=== PATIENT | male | born 1995 | race Caucasian/White ===

== ENCOUNTER 2024-01-22 02:36 | Emergency (ER) | payer SELFPAY ==
[2024-01-22 02:39] VITALS: BP 150/106
--- NOTE | 2024-01-22 03:40 | ED.GENMED ---
History of Present Illness
<Gen Coleman MD, Resident - Last Filed: 01/22/24 05:39>
General
Chief Complaint: Flank Pain
Source: patient
Time Seen by Provider: 01/22/24 03:30
Travel History
Have you traveled to any high risk areas for coronavirus over the past 14 days?: No
Have you had any contact with someone who has COVID-19?: No
Do you have any symptoms of coronavirus? Fever > 100 degrees, chills, cough, shortness of breath, sore throat, loss of taste or smell, muscle aches, or headache?: No
History of Present Illness
History of Present Illness:
Efe Neff, age 28 with a history of nephrolithiasis, developed acute left-sided flank pain a few hours ago. He has experienced similar episodes 3-4x in the past due to nephrolithiasis. He has been evaluated by urology in the past but has not
undergone any procedures so far due to the size of his stones. Denies fever, chills, night sweats or blood in urine.
Past History
<Gen Coleman MD, Resident - Last Filed: 01/22/24 05:39>
Past History
ED Past Medical History: Other (kidney stones)
ED Past Surgical History: None
Social History
Tobacco: Non-smoker
Personal: Single
Employment: Student
Phy Exam
<Gen Coleman MD, Resident - Last Filed: 01/22/24 05:39>
General Physical Exam
General Presentation: well appearing and no apparent distress
General Skin: warm and dry
General Habitus: normal
General Mental: alert
General Hydration: appears well hydrated
ENT Exam
ENT Exam: EOMI, pharynx normal, neck supple and normocephalic
Eye Exam
Eye Exam: PERRL, cornea clear and conjunctiva normal
Cardiovascular Exam
Cardiovascular Exam: regular rate/rhythm, no edema, no murmur and normal peripheral pulses
Pulmonary Exam
Pulmonary Exam: lungs clear, no respiratory distress, no rales, no crackles, no rhonchi, no stridor, no wheezing and no cough
Gastrointestinal Exam
Gastrointestinal Exam: normal bowel sounds, non tender, soft, no organomegaly, no pulsatile mass and non distended
Neurological Exam
Neurological Exam: alert, oriented x3, no motor deficits and speech normal
Musculoskeletal Exam
Musculoskeletal Exam: full ROM and no edema
Skin Exam
Skin Exam: normal color, warm/dry, no rash and no petechia
Psychiatric Exam
Psychiatric Exam: normal mood/affect
Course
<Gen Coleman MD, Resident - Last Filed: 01/22/24 05:39>
Orders/Labs/Results
Orders:
Orders
01/22/24 03:08
UA [Urinalysis] Urgent
Date Specimen was Collected: 01/22/24
Time Specimen was Collected: 03:08
01/22/24 03:44
Ketorolac [Toradol] 30 mg IV NOW STA
Tamsulosin [Flomax] 0.4 mg PO NOW STA
01/22/24 03:47
CT Abd/pel Without Iv Or Oral Urgent
Comment:
Reason For Exam: flank pain
01/22/24 03:48
0.9% Sodium Chloride 500 ml [Nss] 500 ml IV BOLUS
01/22/24 03:49
Ondansetron Injectable [Zofran] 4 mg .ROUTE .[facility]
01/22/24 03:54
Complete Blood Count/With Diff Urgent
Comprehensive Metabolic Panel Urgent
01/22/24 03:57
Ondansetron Injectable [Zofran] 4 mg IV NOW STA
01/22/24 03:58
HYDROmorphone [Dilaudid] 0.5 mg .ROUTE .[facility]
HYDROmorphone [Dilaudid] 0.5 mg IV NOW STA
Abnormal Lab Results
01/22/24
03:54
MPV 10.6 H fL
(7.4-10.4)
Glucose 108 H mg/dl
(70-99)
01/22/24 03:54
01/22/24 03:54
Vital Signs
Initial and Last Documented VS:
Initial Vital Signs
Temp Pulse Resp BP Pulse Ox
97.5 F 87 18 150/106 97
01/22/24 02:39 01/22/24 02:39 01/22/24 02:39 01/22/24 02:39 01/22/24 02:39
Last Documented Vital Signs
Temp Pulse Resp BP Pulse Ox
97.5 F 94 18 131/80 99
01/22/24 02:39 01/22/24 04:35 01/22/24 04:35 01/22/24 04:35 01/22/24 04:35
<Last Myers, - Last Filed: 01/22/24 05:07>
Orders/Labs/Results
Orders:
Orders
01/22/24 03:08
UA [Urinalysis] Urgent
Date Specimen was Collected: 01/22/24
Time Specimen was Collected: 03:08
01/22/24 03:44
Ketorolac [Toradol] 30 mg IV NOW STA
Tamsulosin [Flomax] 0.4 mg PO NOW STA
01/22/24 03:47
CT Abd/pel Without Iv Or Oral Urgent
Comment:
Reason For Exam: flank pain
01/22/24 03:48
0.9% Sodium Chloride 500 ml [Nss] 500 ml IV BOLUS
01/22/24 03:49
Ondansetron Injectable [Zofran] 4 mg .ROUTE .[facility]
01/22/24 03:54
Complete Blood Count/With Diff Urgent
Comprehensive Metabolic Panel Urgent
01/22/24 03:57
Ondansetron Injectable [Zofran] 4 mg IV NOW STA
01/22/24 03:58
HYDROmorphone [Dilaudid] 0.5 mg .ROUTE .[facility]
HYDROmorphone [Dilaudid] 0.5 mg IV NOW STA
Abnormal Lab Results
01/22/24
03:54
MPV 10.6 H fL
(7.4-10.4)
Glucose 108 H mg/dl
(70-99)
01/22/24 03:54
01/22/24 03:54
Vital Signs
Initial and Last Documented VS:
Initial Vital Signs
Temp Pulse Resp BP Pulse Ox
97.5 F 87 18 150/106 97
01/22/24 02:39 01/22/24 02:39 01/22/24 02:39 01/22/24 02:39 01/22/24 02:39
Last Documented Vital Signs
Temp Pulse Resp BP Pulse Ox
97.5 F 94 18 131/80 99
01/22/24 02:39 01/22/24 04:35 01/22/24 04:35 01/22/24 04:35 01/22/24 04:35
<Gen Coleman MD, Resident - Last Filed: 01/22/24 05:39>
*Critical Care Note
Total Time (30-74mins, 75-104mins- exclusive of procedures): Not Applicable
<Last Myers DO - Last Filed: 01/22/24 05:07>
Update Note
Update Note:
CT abdomen and pelvis without IV contrast
IMPRESSION:
Mild left hydroureteronephrosis secondary to a 1 mm stone lodged in the distal left ureter, compatible with obstructive uropathy. Correlate with urinalysis to assess for superimposed infection.
Additional bilateral nonobstructive subcentimeter renal stones. Hepatosplenomegaly. No cholecystitis or pancreatitis. Appendix is normal. No bowel obstruction.
Finalized at 4:22 AM EST
ED Attending Note
<Gen Coleman MD, Resident - Last Filed: 01/22/24 05:39>
-
Portions of this chart may have been created with voice recognition software.� Occasional wrong word or��sound alike� substitutions may have occurred due to the inherent limitations of voice recognition software.
<Last Myers DO - Last Filed: 01/22/24 05:07>
ED Attending Note
Patient seen and examined by attending physician: Yes
I performed a history and physical exam of patient and discussed management with resident, I reviewed resident's note and agree with documented findings and plan of care.: Yes
ED Attending Note:
Pleasant 28-year-old male presents with left flank pain. His pain developed approximately 2 hours prior to arrival. He has had similar symptoms several times in the past which turned out to be kidney stones. Patient has been seen by urology but
has not had any complications with previous stones. Denies fever, chills, chest pain, or shortness of breath. Patient was seen in conjunction with the medical aides teacher. I have reviewed and agree with his history and treatment plan. On my
independent physical exam patient is awake, alert, and oriented x 3. Moderate acute distress despite getting Toradol. Dilaudid was ordered. Hydration was ordered. CT scan of the abdomen pelvis without IV contrast was ordered. Heart is regular
rate rhythm. Lungs clear to auscultation bilaterally no wheezes rales or rhonchi. He has positive left CVA tenderness to palpation. Moves all 4 extremities. Skin is warm and dry.
Discharge Plan
Departure
Patient Disposition: Home (Routine Discharge)
Date of Disposition: 01/22/24
Time of Disposition: 04:45
Patient with high blood pressure during this ER visit?: Yes
Condition: Good
Discharge Problem:
Kidney stone on left side
Instructions: Kidney Stones (DC), How to Strain Your Urine, Narcotic Pain Medication
Prescriptions:
New
oxycodone-acetaminophen [Percocet] 5-325 mg Tablet
1 tab PO Q6HPRN PRN (Reason: pain) Qty: 10 0RF
tamsulosin [Flomax] 0.4 mg Capsule
0.4 mg PO DAILY Qty: 7 0RF
diclofenac sodium 75 mg tablet,delayed release (DR/EC)
75 mg PO BID Qty: 10 0RF
Referrals:
NONE,* [Family Provider] -
Kennedy Watkins Jr., MD [Active] - Call in 1-3 days for appt
Activity Restrictions/Additional Instructions:
Your prescriptions were sent electronically to the pharmacy that you specified.
It was a pleasure meeting you and taking part in your care. We hope for your continued healing and wellness.
Please read discharge instructions in their entirety. However, they are for general education and may not describe your exact diagnosis at discharge. Information on your ER visit and medical conditions were discussed with you along with appropriate
follow up information...
If indicated, please take your medications as instructed and indicated on discharge paperwork.
Please schedule a follow up appointment as directed. Call to schedule an appointment
Please return to the emergency department with ANY change in, persisting, or worsening of symptoms. If any of your symptoms do not improve, or persist, or become more severe within 6-12 hours, please return to the emergency department for further
care.
Please return to the emergency department if you develop a headache, neck pain/stiffness, fever greater than 100.4F, chest pain, shortness of breath, persistent nausea, vomiting, slurred speech, difficulty walking, numbness/tingling, weakness, signs
of infection or any other symptoms that are worrisome to you.
If you have any questions or concerns please do not hesitate to call the Hospital at or E-mail me directly at [email or web address]
Interventions
Interventions:
*Risk Screen - Suicide Last Done: 01/22/24 02:39
*General Assessment Last Done: 01/22/24 02:39
*Neglect/Abuse Screening Last Done: 01/22/24 02:39
ED- Fall Risk Assessment Last Done: 01/22/24 05:02
*ED COVID-19 Vaccine History Last Done: 01/22/24 03:37
*Nursing Disposition Last Done: 01/22/24 05:02
NG-Tpdrly-Irhyxlqdzc Assessment Last Done: 01/22/24 03:37
ED-Male Genitourinary Assessment Last Done: 01/22/24 03:37
Discharge Date and Time
Discharge Date/Time: 01/22/24 05:02
Print Language: PARAGUAYAN
[2024-01-22] MEDS: NSS 500 IV (03:52)
[2024-01-22] MEDS: TORADOL 30 MG IV (03:52)
[2024-01-22 03:55] VITALS: BMI 25.0
[2024-01-22] MEDS: ZOFRAN 4 MG IV (03:57)
[2024-01-22] MEDS: DILAUDID 0.5 MG IV (03:58)
[2024-01-22 04:01] LABS: % Basophils 0.5 % (0-2); % Eosinophils 2.5 % (0-6); % Immature Granulocytes 0.3 % (0-0.5); % Lymphocytes 21.7 % (20.5-51.1); Absolute Basophils 0.1 10^3/uL (0-0.2); Absolute Eosinophils 0.2 10^3/uL (0-0.7); Absolute Monocytes 0.6 10^3/uL (0.1-0.6); Absolute Neutrophils 6.2 10^3/uL (1.4-6.5); Hematocrit 45.2 % (39.0-52.0); Hemoglobin 15.8 g/dL (13.0-18.0); Mean Corpuscular Hgb 29.6 pg (27.0-31.0); Mean Corpuscular Volume 84.6 fL (80.0-94.0); Mean Platelet Volume 10.6 fL (7.4-10.4); Nucleated Red Blood Cells % 0 % (-); Platelet Count 277 10^3/uL (130-400); Red Blood Cell Count 5.34 10^6/uL (4.70-6.10); Red Cell Dist. Width 12.1 % (11.5-14.5); White Blood Cell Count 9.1 10^3/uL (4.8-10.8)
[2024-01-22 04:19] LABS: ALT (SGPT) 25 U/L (0-50); AST (SGOT) 29 U/L (17-59); Albumin 4.8 g/dl (3.5-5.0); Alkaline Phosphatase 59 U/L (38-126); Blood Urea Nitrogen 16 mg/dl (9-20); Carbon Dioxide 23 mmol/L (22-30); Chloride 103 mmol/L (98-107); Estimated Creatinine Clearance 78 ml/min; Glucose 108 mg/dl (70-99); Potassium 4.7 mmol/L (3.5-5.1); Sodium 140 mmol/L (135-145); Total Bilirubin 0.8 mg/dl (0.2-1.3); Total Protein 7.3 g/dl (6.3-8.2); eGFR > 60.00
[2024-01-22] MEDS: FLOMAX 0.4 MG PO (04:32)
[2024-01-22 04:35] VITALS: BP 131/80
== END 2024-01-22 05:02 | disposition home or self-care (01) ==
LOC: EMR 02:36
PROVIDERS: Student in an Organized Health Care Education/Training Program; EMERGENCY PHYSICIAN Student in an Organized Health Care Education/Training Program
DX: N13.2 Hydronephrosis with renal and ureteral calculous obstruction (principal); R16.2 Hepatomegaly with splenomegaly, not elsewhere classified; Z87.442 Personal history of urinary calculi
CPT/HCPCS: 99284; 96374; 96375 ×2; 74176; 80053; 85025